=== PATIENT | male | born 1990 | race African-American/Black ===

== ENCOUNTER 2023-01-01 14:24 | Emergency (ER) | payer MEDICAID ==
[~2023-01-01] VITALS: Ht 175.3 cm; Wt 62.0 kg
[2023-01-01] MEDS ORDERED: HYDROCODONE/ACETAMINOPHEN 7.5/325MG TABLET PO ONE (14:45)
[2023-01-01] MEDS: LIDOCAINE 5% PATCH TOP SCH ×3 (15:45→17:28)
[2023-01-01] MEDS ORDERED: KETOROLAC 60MG/2ML VIAL IM ONE (16:15)
[2023-01-01] MEDS ORDERED: ACETAMINOPHEN 325MG TABLET PO ONE (16:15)
[2023-01-01] MEDS ORDERED: METHOCARBAMOL 500MG TABLET PO ONE (16:15)
[2023-01-01] MEDS ORDERED: ACET-2708 MT (16:57)
[2023-01-01] MEDS ORDERED: IBUP-2028 MT (16:57)
[2023-01-01 17:28] VITALS: BP 121/68
== END 2023-01-01 17:29 | disposition home or self-care (01) ==
LOC: ER 14:24
DX: M54.50 Low back pain, unspecified (principal); J45.909 Unspecified asthma, uncomplicated
CPT/HCPCS: 72131; 96372; 99285; J1885; Z7610

== ENCOUNTER 2023-03-13 05:23 | Emergency (ER) | payer MEDICAID ==
[~2023-03-13] VITALS: Ht 175.3 cm; Wt 68.0 kg
[~2023-03-13 05:23] MED LIST: ACET-2708 MT; IBUP-2028 MT
[2023-03-13 05:33] VITALS: BP 110/69; PULSE 74; RESP 18; TEMP 98.3; O2SAT 98
[2023-03-13 06:01] LABS: HEMATOCRIT. 46.9 % (42.0-52.0); MEAN CORPUSCULAR HEMOGLOBIN 33.8 pg (28.0-32.0); MEAN CORPUSCULAR HGB CONC 32.1 g/dL (31.0-37.0); MEAN CORPUSCULAR VOLUME 105.5 fL (80.0-94.0); MEAN PLATELET VOLUME 10.9 fl (7.4-10.4); PLATELET 114 x1000/uL (130-400); RED BLOOD CELL COUNT 4.44 mill/uL (4.7-6.1); WHITE BLOOD COUNT 5.1 x1000/uL (4.5-11.0)
[2023-03-13 06:03] LABS: CHLORIDE 109 mEq/L (98-107); INDEX HEMOLYSI 1 (1-3); INDEX ICTERIC 1 (1-4); INDEX LIPEMIC 1 (1-3); POTASSIUM 4.1 mEq/L (3.5-5.1); SODIUM 140 mEq/L (136-145)
[2023-03-13 06:12] LABS: ALANINE AMINOTRANSFERASE 33 IU/L (13-61); ALBUMIN 3.7 g/dL (3.4-5.0); ASPARTATE AMINOTRANSFERASE 23 IU/L (15-37); BILIRUBIN TOTAL 0.4 mg/dL (0.1-1.0); CARBON DIOXIDE 27 mEq/L (21-32); CREATININE 0.9 mg/dL (0.6-1.3); GLUCOSE 100 mg/dL (70-105); PROTEIN TOTAL 6.8 g/dL (6.0-8.3); UREA NITROGEN BLOOD 5 mg/dL (7-21)
[2023-03-13 06:26] LABS: DIFFERENTIAL COMMENT 1
[2023-03-13 06:48] LABS: PLATELET ESTIMATE NORMAL
[2023-03-13 08:01] LABS: CLARITY URINE CLEAR (CLEAR); COLOR URINE DARK YELLOW (YELLOW); GLUCOSE URINE NEGATIVE (NEGATIVE); KETONES URINE TRACE (NEGATIVE); LEUKOCYTE ESTERASE URINE NEGATIVE (NEGATIVE); NITRITE URINE NEGATIVE (NEGATIVE); OCCULT BLOOD URINE NEGATIVE (NEGATIVE); PH URINE 6.5 (4.5-8.0); PROTEIN URINE TRACE (NEGATIVE); SPECIFIC GRAVITY URINE 1.022 (1.005-1.030)
[2023-03-13 08:32] LABS: MUCUS URINE 1+ /lpf (NONE/TRACE); SQUAMOUS EPITHELIAL CELL URINE RARE /lpf (RARE/1+)
[2023-03-13 08:33] LABS: BACTERIA URINE TRACE
[2023-03-13 08:34] LABS: RBC URINE 0-2 /hpf (0-2); WBC URINE 0-2 /hpf (0-2)
[2023-03-13] MEDS ORDERED: LOPE2TAB26 MT (09:28)
== END 2023-03-13 09:48 | disposition home or self-care (01) ==
LOC: ER 05:43
DX: R19.7 Diarrhea, unspecified (principal); J45.909 Unspecified asthma, uncomplicated
CPT/HCPCS: 36415; 80053; 81003; 85025; 99283